=== PATIENT | female | born 1995 | race Two or more races ===

== ENCOUNTER → 2018-04-08 | Outpatient (CLI) | payer OTHER ==
--- NOTE | 2018-04-13 16:55 | REP ---
Three-phase bone scan of the hips and pelvis: History: Bilateral hip pain times 1 year, right greater than left. Comparison radiographs are from September 10, 2017. Comparison MRI images are from February 04, 2018. Technique: 21.2 mCi technetium 99m MDP is injected and standard three-phase images are acquired. Scintigraphic findings: Anterior posterior flow study is normal. Blood pool images show no focal area of soft tissue hyperemia. Bilateral renal uptake is observed. Uptake is seen in the urinary bladder. Delayed scan images demonstrate normal symmetric uptake in the proximal femurs and hip joint regions bilaterally. No abnormal pelvic uptake is seen. Impression: Normal three-phase bone scan of the hips and pelvis. Electronically Signed by Miguel Roldan MD 04/13/2018 05:44 P
== END ==
LOC: M RAD 10:18
PROVIDERS: ATTEND Nurse Practitioner Family
DX: M25.551 Pain in right hip (principal)
CPT/HCPCS: 78315; A9503

== ENCOUNTER → 2018-06-09 | Outpatient (CLI) | payer OTHER ==
[~2018-06-09] MED LIST: CONRAY-43 43% 50ML VIAL (Q9960) As Ordered ONE; PROHANCE 279.3MG/ML 5ML VIAL (A9576) As Ordered ONE
--- NOTE | 2018-06-09 09:32 | REP ---
MRI LEFT HIP: TECHNIQUE: Coronal T1, STIR through the pelvis, T2 fat sat, left hip all three planes, axial oblique proton density fat sat left hip. Patient was scheduled for MR arthrography but refused the arthrogram procedure. The visualized osseous structures demonstrate no evidence of bone marrow edema. There is no occult fracture. There is no evidence of avascular necrosis. There is a tiny bone island in the right femoral head and another seen in the left femora head. There is no definite labral tear. There is a normal amount of joint fluid. There is mild increased signal in the soft tissues along the greater trochanter of the proximal left femur compatible with mild greater trochanteric tendinobursitis. No other abnormal signal is seen in the surrounding soft-tissues. The visualized intrapelvic structures appear unremarkable. Multiple normal size follicles are seen in the ovaries. IMPRESSION: No evidence of occult fracture or avascular necrosis. No definite labral tear. There are findings suggesting mild greater trochanteric tendinobursitis. Electronically Signed by Vladimir Agudelo MD 06/10/2018 10:18 A
== END ==
LOC: M RADPRO 06:25
PROVIDERS: ATTEND General Practice
DX: M25.552 Pain in left hip (principal); M70.62 Trochanteric bursitis, left hip

== ENCOUNTER 2018-09-18 06:05 | Day surgery (SDC) | payer OTHER ==
[~2018-09-18] VITALS: Ht 160 cm; Wt 74.9 kg
[2018-09-18] MEDS ORDERED: LIDOCAINE 1% SDV INJ 30 ML VIAL As Ordered ONE ×2 (06:55→08:17)
[2018-09-18] MEDS ORDERED: LIDOCAINE W/EPINEPHRINE 1% 20ML VIAL As Ordered ONE (06:55)
[2018-09-18] MEDS ORDERED: BUPIVACAINE HCL 0.25% 30 ML VIAL As Ordered ONE ×2 (06:55→08:17)
[2018-09-18] MEDS ORDERED: ceFAZolin SOD 1 GM in D5W MINI-BAG PLUS 50 ML IV ONE (07:00)
[2018-09-18] MEDS ORDERED: LR 1,000 ML IV ONE (07:00)
[2018-09-18 07:04] LABS: URINE PREG TEST NEGATIVE (NEGATIVE)
[2018-09-18] MEDS ORDERED: ONDANSETRON 4MG/2ML VIAL (J2405) As Ordered ONE (07:15)
[2018-09-18] MEDS ORDERED: MIDAZOLAM INJ 2 MG/2 ML VIAL (J2250) As Ordered ONE (07:15)
[2018-09-18] MEDS ORDERED: LIDOCAINE 2% INJ 100 MG/5 ML SDV (FOR ANES.) As Ordered ONE (07:15)
[2018-09-18] MEDS ORDERED: dexameTHASONE 4 MG/ML 1ML VIAL (J1100) As Ordered ONE (07:15)
[2018-09-18] MEDS ORDERED: fentaNYL 100 MCG/2 ML INJECTION (J3010) As Ordered ONE (07:16)
[2018-09-18] MEDS ORDERED: PROPOFOL 200 MG/20 ML VIAL As Ordered ONE ×3 (07:19→08:22)
[2018-09-18] MEDS ORDERED: KETAMINE HCL 200 MG/20 ML VIAL As Ordered ONE (08:02)
[2018-09-18] MEDS ORDERED: OXYC1TAB23 PO (09:14)
[2018-09-18] MEDS ORDERED: METOCLOPRAMIDE INJ 10MG/2ML VIAL (J2765) As Ordered ONE (09:33)
[2018-09-18 09:40] VITALS: BP 131/70
[2018-09-18] MEDS ORDERED: LR 1,000 ML IV SCH (09:45)
[2018-09-18] MEDS ORDERED: fentaNYL 100 MCG/2 ML INJECTION (J3010) IV PRN (09:45)
[2018-09-18] MEDS ORDERED: MEPERIDINE INJ 25 MG/ML VIAL (J2175) IV PRN (09:45)
[2018-09-18] MEDS ORDERED: PERCOCET 5MG/325MG TAB PO PRN (09:45)
[2018-09-18] MEDS ORDERED: METOCLOPRAMIDE INJ 10MG/2ML VIAL (J2765) IV PRN (09:45)
[2018-09-18] MEDS ORDERED: ONDANSETRON 4MG/2ML VIAL (J2405) IV PRN (09:45)
--- NOTE | 2018-09-18 09:56 | ROOPDOC ---
[facility] Report Of Operation Report of Operation DATE OF PROCEDURE: 09/18/18 PREPROCEDURE DIAGNOSES: Right axillary lipoma. POSTPROCEDURE DIAGNOSES: Is right axillary lipoma. PROCEDURE: Excision of right axillary lipoma. SURGEON: Matias Cheney MD ANESTHESIA: Monitored Anesthesia Care, local anesthesia with 1% lidocaine + 1/4% marcaine (total of 63 mLs). ESTIMATED BLOOD LOSS: Approximately 20 mL. COMPLICATIONS: none. REMARKS: 22 F, healthy with long standing soft tissue lump on her right axilla.. PROCEDURE NOTE: I did not find a distinct lipoma within the soft tissue lump, nor any demacation of the subcutaneous tissue to the "lipoma" or enlarged fat pad on her axilla. The nodularities within the soft tissue lump could be just regular sucutaneous adiposity vs, lymph nodes over the area. Portions of skin also removed with the resulting laxity from removal of the soft tissue lump. DESCRIPTION OF PROCEDURE: . MATIAS CHENEY MD Sep 18, 2018 09:56
== END 2018-09-18 09:55 | disposition home or self-care (01) ==
LOC: M SDC 06:05
PROVIDERS: ATTEND Surgery
DX: D17.21 Benign lipomatous neoplasm of skin and subcutaneous tissue of right arm (principal); L41.1 Pityriasis lichenoides chronica
CPT/HCPCS: 21552; 84703; 88304; J0690; J1100; J2250; J2405; J3010